=== PATIENT | female | born 1975 | race Two or more races ===

== ENCOUNTER 2022-02-13 16:02 | Emergency (ER) | payer OTHER ==
[~2022-02-13] VITALS: Ht 165.1 cm; Wt 81.6 kg
[2022-02-13] MEDS ORDERED: DOXYCYCLINE HY100 M2 PO (16:51)
[2022-02-13] MEDS ORDERED: ESCITALOPRAM OX20 MG PO (16:52)
[2022-02-13] MEDS ORDERED: INTESTINEX680 M1 PO (19:27)
[2022-02-13] MEDS ORDERED: AMOX-CLAV 875-1 EACH PO (19:27)
[2022-02-13] MEDS ORDERED: DICLOFENAC POTA50 MG PO (19:27)
== END 2022-02-13 19:35 | disposition home or self-care (01) ==
LOC: ER 16:02
DX: L03.114 Cellulitis of left upper limb (principal); L03.113 Cellulitis of right upper limb; W55.01XA Bitten by cat, initial encounter; Y93.9 Activity, unspecified; Y92.9 Unspecified place or not applicable